=== PATIENT | male | born 1995 | race Caucasian/White ===

== ENCOUNTER 2018-10-27 01:05 | Emergency (ER) | payer OTHER ==
[~2018-10-27] VITALS: Ht 172.7 cm; Wt 96.3 kg
[~2018-10-27 01:05] MED LIST: GAS X PO
[2018-10-27 01:10] VITALS: Ht 172.7 cm; Wt 96.3 kg
[2018-10-27] MEDS ORDERED: SOD CHLORIDE 0.9% 1,000 ML IV STA (02:24)
[2018-10-27] MEDS ORDERED: morphine 4 MG/ML VIAL IV STA (02:24)
[2018-10-27] MEDS ORDERED: ONDANSETRON 4 MG INJ IV STA (02:24)
[2018-10-27] MEDS ORDERED: ACET500C5 PO (03:08)
[2018-10-27] MEDS ORDERED: FAMO-96 PO (03:08)
[2018-10-27] MEDS ORDERED: ONDA4TAB14 PO (03:08)
[2018-10-27 03:39] VITALS: BP 149/91; PULSE 78; RESP 16
--- NOTE | 2018-10-27 04:12 | ERD ---
ER Documentation Chief Complaint Chief Complaint STATES VOMITING BLOOD; TODAY; DRANK HEAVILY NIGHT BEFORE HPI 22-year-old male presenting with vomiting times 1 day. Patient is describing some epigastric pain. He has a history of gastritis. He took Zofran earlier today but then vomited up. Patient has been vomiting for the last 8 hours. Denies any chest pain or shortness of breath. Denies any changes in urination or bowel movement. Denies other medical problems. NKDA. Surgical history denies. Social history denies ROS All systems reviewed and are negative except as per history of present illness. Medications Home Meds Active Scripts Acetaminophen* (Tylophen*) 500 Mg Capsule, 2 CAP PO Q8H PRN for PAIN AND OR ELEVATED TEMP, #20 CAP Prov:MADDIE NAGEL PA-C 10/27/18 Famotidine* (Pepcid*) 20 Mg Tablet, 20 MG PO BID for 4 Days, #30 TAB Prov:MADDIE NAGEL PA-C 10/27/18 Ondansetron (Ondansetron Odt) 4 Mg Tab.rapdis, 4 MG PO Q6H PRN for NAUSEA AND/OR VOMITING, #10 TAB Prov:MADDIE NAGEL PA-C 10/27/18 Reported Medications [Gas X] No Conflict Check, PO DAILY PRN 05/22/12 Allergies Allergies: Coded Allergies: No Known Drug Allergies (Verified Allergy, Unknown, 10/27/18) PMhx/Soc History of Surgery: No Anesthesia Reaction: No Hx Neurological Disorder: No Hx Respiratory Disorders: No Hx Cardiac Disorders: No Hx Psychiatric Problems: No Hx Miscellaneous Medical Probl: Yes (gerd) Hx Alcohol Use: No Hx Substance Use: No Hx Tobacco Use: No Smoking Status: Current some day smoker FmHx Family History: No diabetes, No coronary disease, No other Physical Exam Vitals Vital Signs Date Temp Pulse Resp B/P (MAP) Pulse Ox O2 O2 Flow FiO2 Time Delivery Rate 10/27/18 98.1 78 16 149/91 99 Room Air 03:39 (110) 10/27/18 98.8 110 18 144/80 99 01:10 (101) Physical Exam GENERAL: The patient is well-appearing, well-nourished, in no acute distress CHEST: Clear to auscultation bilaterally. There are no rales, wheezes or rhonchi. HEART: Regular rate and rhythm. No murmurs, clicks, rubs or gallops. No S3 or S4. ABDOMEN:Soft, nondistended. Mild tenderness palpation in epigastric region with no rebound tenderness. No distention. No organomegaly. Result Diagram: 10/27/18 0236 10/27/18 0236 Results 24 hrs Laboratory Tests Test 10/27/18 02:36 White Blood Count 13.0 10^3/ul Red Blood Count 5.45 10^6/ul Hemoglobin 15.6 g/dl Hematocrit 46.8 % Mean Corpuscular Volume 85.9 fl Mean Corpuscular Hemoglobin 28.6 pg Mean Corpuscular Hemoglobin Concent 33.3 g/dl Red Cell Distribution Width 12.8 % Platelet Count 399 10^3/UL Mean Platelet Volume 9.2 fl Immature Granulocytes % 0.300 % Neutrophils % 71.4 % Lymphocytes % 18.4 % Monocytes % 9.6 % Eosinophils % 0.0 % Basophils % 0.3 % Nucleated Red Blood Cells % 0.0 /100WBC Immature Granulocytes # 0.040 10^3/ul Neutrophils # 9.3 10^3/ul Lymphocytes # 2.4 10^3/ul Monocytes # 1.3 10^3/ul Eosinophils # 0.0 10^3/ul Basophils # 0.0 10^3/ul Nucleated Red Blood Cells # 0.0 10^3/ul Urine Color YELLOW Urine Clarity CLEAR Urine pH 8.0 Urine Specific [place] 1.024 Urine Ketones TRACE mg/dL Urine Nitrite NEGATIVE mg/dL Urine Bilirubin NEGATIVE mg/dL Urine Urobilinogen NEGATIVE mg/dL Urine Leukocyte Esterase NEGATIVE Morales/ul Urine Microscopic RBC 1 /HPF Urine Microscopic WBC 0 /HPF Urine Hemoglobin NEGATIVE mg/dL Urine Glucose NEGATIVE mg/dL Urine Total Protein 2+ mg/dl Sodium Level 147 mmol/L Potassium Level 3.5 mmol/L Chloride Level 102 mmol/L Carbon Dioxide Level 28 mmol/L Anion Gap 17 Blood Urea Nitrogen 9 mg/dl Creatinine 0.79 mg/dl Est Glomerular Filtrat Rate mL/min > 60 mL/min Glucose Level 111 mg/dl Calcium Level 10.1 mg/dl Total Bilirubin 0.6 mg/dl Direct Bilirubin 0.00 mg/dl Indirect Bilirubin 0.6 mg/dl Aspartate Amino Transf (AST/SGOT) 27 IU/L Alanine Aminotransferase (ALT/SGPT) 51 IU/L Alkaline Phosphatase 108 IU/L Total Protein 9.0 g/dl Albumin 5.1 g/dl Globulin 3.90 g/dl Albumin/Globulin Ratio 1.30 Lipase 39 U/L Current Medications Medications Dose Sig/Betsey Start Time Status Last (Trade) Ordered Route PRN Stop Time Admin Dose Reason Admin Sodium 1,000 ml @ Q1H STAT 10/27/18 DC 10/27/18 Chloride 1,000 mls/hr IV 02:24 10/27/18 02:42 03:23 Morphine 4 mg ONCE STAT 10/27/18 DC Sulfate IV 02:24 10/27/18 (morphine) 02:26 Ondansetron 4 mg ONCE STAT 10/27/18 DC 10/27/18 HCl (Zofran IV 02:24 10/27/18 02:42 Inj) 02:26 Procedures/MDM DIAGNOSTIC IMAGING REPORT Patient: FELTON NICHOLS : 1995 Age: 22 Sex: M MR #: [id number] DOS: 10/27/18 0224 Ordering MD: RACHEL NAGEL PA-C Location: [facility] Room/Bed: PROCEDURE: US gallbladder . CLINICAL INDICATION: Abdominal pain TECHNIQUE: Multiple real-time images were acquired of the patient's abdomen utilizing a high resolution transducer. COMPARISON: None FINDINGS: There is no evidence of cholelithiasis. There is no gallbladder wall thickening or pericholecystic fluid. The CBD measures 4 mm. No sonographic Musa's sign was elicited. Visualized portions of the liver and right kidney are unremarkable. The pancreas is poorly visualized. IMPRESSION: Unremarkable gallbladder ultrasound. MDM: 21-year-old male presents with epigastric pain. I have low suspicion for choledocholithiasis, cholecystitis, cholangitis or pancreatitis. Low suspicion for cardiac or pulmonary emergency. I have low suspicion for other abdominal emergencies. Patient is discharged stricter precautions and told to follow-up with primary care within 1-2 days for close evaluation. Patient is told if symptoms change or worsen to immediately return to the ER. All questions answ ered at discharge Departure Diagnosis: Primary Impression: Nausea and vomiting Condition: Stable Patient Instructions: Nausea and Vomiting-Adult Referrals: COMM[facility]ITY CLINICS YOU HAVE RECEIVED A MEDICAL SCREENING EXAM AND THE RESULTS INDICATE THAT YOU DO NOT HAVE A CONDITION THAT REQUIRES URGENT TREATMENT IN THE EMERGENCY DEPARTMENT. FURTHER EVALUATION AND TREATMENT OF YOUR CONDITION CAN WAIT UNTIL YOU ARE SEEN IN YOUR DOCTORS OFFICE WITHIN THE NEXT 1-2 DAYS. IT IS YOUR RESPONSIBILITY TO MAKE AN APPOINTMENT FOR FOLOW-UP CARE. IF YOU HAVE A PRIMARY DOCTOR --you should call your primary doctor and schedule an appointment IF YOU DO NOT HAVE A PRIMARY DOCTOR YOU CAN CALL OUR PHYSICIAN REFERRAL HOTLINE AT IF YOU CAN NOT AFFORD TO SEE A PHYSICIAN YOU CAN CHOSE FROM THE FOLLOWING FORMERLY [facility] [id number] [facility]. [facility] [address] [facility] [facility] [address] [facility] [facility] [address] [facility]. [facility] [address] [facility] [facility]. [address] Additional Instructions: FOLLOW UP WITH YOUR PRIMARY CARE PHYSICIAN TOMORROW.Return to this facility if you are not improving as expected. MADDIE NAGEL PA-C Oct 27, 2018 04:12
== END 2018-10-27 03:46 | disposition home or self-care (01) ==
LOC: FTE 01:05
DX: R11.2 Nausea with vomiting, unspecified (principal); F17.210 Nicotine dependence, cigarettes, uncomplicated
CPT/HCPCS: 36415; 76705; 80053; 81001; 83690; 85025; 96361; 96374; J2405; J7030; Z7502; J2270